=== PATIENT | female | born 1985 | race Caucasian/White ===

== ENCOUNTER 2016-11-29 11:36 | Emergency (ER) | payer OTHER ==
[~2016-11-29] VITALS: Ht 160 cm; Wt 60.8 kg
[~2016-11-29 11:36] MED LIST: ATARAX,VISTARIL50 MG PO; BACTRIM,SEPT1 TABLET PO; CEFACLOR; CEPHALEXIN500 MG; CLONAZEPAM0.5 MG; CLONAZEPAM0.5 MG PO; COLACE100 MG PO; FIORICET 50-301 EACH PO; FLAGYL500 MG; KLONOPIN; KLONOPIN0.5 M1 PO; LEVAQUIN750 MG PO; MOTRIN800 MG PO; Motrin PO; NASONEX17 GM BOTH NARES; OMEPRAZOLE20 M2; OMEPRAZOLE20 MG; OMNICEF300 MG PO; PREDNISONE20 MG PO; PRILOSEC40 MG PO; PROAIR HFA8.5 GM IH; PROMETHAZINE HC25 M1; PROVENTIL17 GM IH; Percocet 5/325,Endoc PO; Proventil,Ventolin H IH; RANITIDINE HCL150 MG; ROBITUSSIN15 MG PO; TRAMADOL HCL50 MG; VALTREX1000 MG PO; VALTREX50 MG/ML PO; ZANTAC150 M1 PO; ZANTAC75 MG; ZITHROMAX Z-PA250 MG PO
[2016-11-29] MEDS ORDERED: CLEOCIN300 MG PO ×2 (14:17→14:59)
[2016-11-29] MEDS ORDERED: ULTRAM50 MG PO (14:59)
[2016-11-29] MEDS ORDERED: BACTROBAN NASAL1 G1 BOTH NARES (15:00)
[2016-11-29 15:16] VITALS: BP 113/73
== END 2016-11-29 15:17 | disposition home or self-care (01) ==
LOC: EME 11:36 → RME 11:36
DX: K08.89 Other specified disorders of teeth and supporting structures (principal); G50.1 Atypical facial pain; F17.200 Nicotine dependence, unspecified, uncomplicated; Z91.040 Latex allergy status; Z88.0 Allergy status to penicillin
CPT/HCPCS: 99281; 99283